=== PATIENT | male | born 1960 | race Two or more races ===

== ENCOUNTER 2025-11-01 18:03 | Emergency (ER) | payer MEDICARE, MEDICAID, SELFPAY ==
[2025-11-01 18:20] VITALS: BP 146/76; PULSE 82; RESP 16; TEMP 36.7; O2SAT 97; BMI 33.6
--- NOTE | 2025-11-01 18:26 | XR_ITS ---
Examination: CT abdomen and pelvis without contrast. Coronal 3-D reconstructions. Sagittal 2-D reconstructions. Date and time of exam: November 01 in 2024, 1854 hours INDICATIONS: Abdominal pain and diarrhea today CTDI: vol (mGy): 8.86 DLP: (mGycm): 541 Technique: Axial images of the abdomen have been obtained, 3 mm slice thickness Intravenous contrast material has not been administered. Low dose protocols were performed. One or more of the following dose reduction techniques were used; automated exposure control, adjustment of the mA and/or KV according to patient size, use of iterative reconstruction technique. Findings: No focal liver or splenic lesion No gallstones No pancreatic or adrenal mass No renal or ureteral calculi Aortic calcification no aneurysmal dilatation Normal appendix Mild small bowel ileus No obstruction No diverticulitis Mild prostatomegaly Mild urinary bladder wall thickening Moderate osteopenia IMPRESSION: No renal or ureteral calculi, no hydronephrosis Normal appendix Mild small bowel ileus Mild urinary bladder wall thickening, cystitis would be included in the differential
--- NOTE | 2025-11-01 18:27 | PD.EDRME ---
Rapid Medical Screening Exam RME Arrival date/time: 11/01/25 18:03 This is a case of 65-year-old male who history of hypertension hyperlipidemia came in in the emergency room due to abdominal pain vomiting diarrhea dizziness for 5 days worsening of the symptoms this patient decided to start consulted in the emergency room Chief Complaint: Abdominal Pain Time Seen by Provider: 11/01/25 18:22 Vital signs: Vital Signs Temperature 98.0 F 11/01/25 18:20 Pulse Rate 82 11/01/25 18:20 Respiratory Rate 16 11/01/25 18:20 Blood Pressure 146/76 H 11/01/25 18:20 Pulse Oximetry (%) 97 11/01/25 18:20 Oxygen Delivery Method Room Air 11/01/25 18:20 Exam: Generalized tenderness all quadrants of the abdomen normal active bowel sounds no guarding no rebound rigidity Clinical Impression: abdominal pain
[2025-11-01 18:55] LABS: Basophils # (Auto) 0.0 Thou/mm3 (0.0-0.2); Basophils % (Auto) 0 % (0-2.5); Eosinophils # (Auto) 0.0 Thou/mm3 (0.0-0.5); Eosinophils % (Auto) 0 % (0-10); Hematocrit 45.5 % (41.0-53.0); Hemoglobin 15.5 g/dL (13.5-16.0); Immature Granulocytes Auto 0.06 Thou/mm3 (0.00-0.00); Lymphocytes # (Auto) 0.5 Thou/mm3 (1.0-4.8); Lymphocytes % (Auto) 3 % (10-50); Mean Corpuscular HGB Conc 34.1 g/dl (31.0-37.0); Mean Corpuscular Hemoglobin 27.7 pg (25.0-35.0); Mean Corpuscular Volume 81 fL (80-100); Monocytes # (Auto) 0.4 Thou/mm3 (0.0-0.8); Monocytes % (Auto) 3 % (0-12); Neutrophils # (Auto) 14.0 Thou/mm3 (1.8-7.7); Neutrophils % (Auto) 93 % (37-80); Nucleated Red Blood Cell # 0.00 Thou/mm3 (0.00-0.00); Nucleated Red Blood Cell % 0 /100 WBC (0); Platelet Count 215 Thou/mm3 (140-440); RDW Standard Deviation 35.8 fL (35.1-43.9); Red Blood Count 5.60 Miln/mm3 (4.50-5.90); White Blood Count 15.0 Thou/mm3 (3.8-10.6)
[2025-11-01 19:20] LABS: Alanine Aminotransferase 51 U/L (10-49); Albumin, Serum 4.9 gm/dL (3.4-4.8); Albumin/Globulin Ratio 1.7 (1.2-2.2); Alkaline Phosphatase 87 U/L (46-116); Anion Gap 10 (7-16); Aspartate Amino Transferase 31 U/L (0-34); BUN/Creatinine Ratio 18 Ratio (12-20); Bilirubin,Total 1.1 mg/dL (0.3-1.2); Blood Urea Nitrogen 16 mg/dL (9-23); Calcium 9.5 mg/dL (8.3-10.6); Calcium (Corrected) 9.5 mg/dL (8.5-10.1); Carbon Dioxide 27.4 mMol/L (20.0-31.0); Chloride 100 mMol/L (98-107); Creatinine (Component) 0.9 mg/dL (0.6-1.3); Estimated Creatinine Clearance 91.1 mL/min (>60); Globulin 2.9 gm/dL (2.3-3.5); Glucose 139 mg/dL (74-106); Lipase 29 U/L (12-53); Osmolality,Calculated 277 (275-295); Potassium 3.9 mMol/L (3.4-5.1); Sodium 137 mMol/L (136-145); Total Protein 7.8 gm/dL (5.7-8.2); eGFR > 60 See Note
[2025-11-01 20:08] LABS: Collection Type, Urine Clean Catch
[2025-11-01 20:15] LABS: Amorphous Crystals,Urine Present (Absent); Bacteria,Urine Rare; Bilirubin,Urine Negative (Negative); Blood,Urine Negative (Negative); Clarity,Urine Clear (Clear/Hazy); Color,Urine Yellow (Lt Yel-Yel); Glucose, Urine Negative (Negative); Ketones,Urine Negative (Negative); Leukocyte Esterase,Urine Negative (Negative); Nitrite,Urine Negative (Negative); PH,Urine 7.0 (5.0-7.0); Protein,Urine 1+ (Neg - Trace); RBC,Urine 14 /hpf (0-3); Specific Gravity,Urine 1.030 (1.001-1.035); Squamous Epithelial Cell,Urine < 1 /hpf (0-5); Urobilinogen,Urine 2.0 mg/dL (0.0-1.0); WBC,Urine 1 /hpf (0-5)
--- NOTE | 2025-11-01 21:56 | EDNOTE_ITS ---
ED General RME/HPI General Chief complaint: Abdominal Pain Stated complaint: ABD PAIN, NAUSEA/DIARRHEA, DIZZY ALL DAY Time Seen by Provider: 11/01/25 18:22 Arrival date/time: 11/01/25 18:03 RME / HPI RME / HPI narrative: 11/01/25 18:03 This is a case of 65-year-old male who history of hypertension hyperlipidemia came in in the emergency room due to abdominal pain vomiting diarrhea dizziness for 5 days worsening of the symptoms this patient decided to start consulted in the emergency room Exam: Generalized tenderness all quadrants of the abdomen normal active bowel sounds no guarding no rebound rigidity Impression: abdominal pain Related Data Home Medications ?Medication ?Instructions ?Recorded ?Confirmed amlodipine 5 mg tablet (Norvasc) 5 mg PO QDAY 03/25/24 03/25/24 atorvastatin 40 mg tablet 40 mg PO QDAY 03/25/2403/25 lisinopril 30 mg tablet 30 mg PO QDAY 03/25/2403/25 Previous Rx's ?Medication ?Instructions ?Recorded ibuprofen 800 mg tablet 800 mg PO TID PRN pain #30 t abs 05/15/24 loperamide 2 mg capsule 2 mg PO Q6H PRN loose stool 5 days 11/01/25 #20 caps nitrofurantoin macrocrystal 100 mg 100 mg PO BID 7 day s #14 caps 11/01/25 capsule Allergies Allergy/AdvReac Type Severity Reaction Status Date / Time No Known Allergies Allergy Verified 11/01/25 18:07 ED Exam Narrative Physical exam: Physical Exam: GENERAL: Awake, answering questions appropriately, appears stated age, obese HEENT: NC/AT. Moist mucosa. PERRLA/EOMI. CARDIO: Heart RRR, no obvious murmurs, no JVD. PULM: No coughing or visible SOB. Lungs CTA B/L. GI: Abdomen soft, mildly tender in the epigastric region otherwise unremarkable, no organomegaly, no guarding or rebound tenderness. SKIN/MSK/EXT: No wounds/discoloration/rashes/edema/amputations. +Pedal pulses present B/L. NEURO: Oriented x3, Moves extremities x4, no focal neurologic deficits noted, [id number] test unremarkable, gait steady with good lift off and foot placement, no pronator drift noted, rapid alternating movements intact Course Quality Measures none Orders Category Date Time Status CT abdomen pelvis wo con Stat Exams 11/01/25 18:26 Completed CBC Stat Lab 11/01/25 18:45 Completed Comprehensive Metabolic Panel Stat Lab 11/01/25 18:45 Completed Lipase Stat Lab 11/01/25 18:45 Completed Urinalysis Stat Lab 11/01/25 20:01 Completed Urine Culture Stat Lab 11/01/25 20:01 Received Loperamide [Imodium] Med 11/01/25 21:57 Discontinued 4 mg PO X1 ONE Vital Signs Vital signs: Vital Signs Temperature 98.0 F 11/01/25 18:20 Pulse Rate 82 11/01/25 18:20 Respiratory Rate 16 11/01/25 18:20 Blood Pressure 146/76 H 11/01/25 18:20 Pulse Oximetry (%) 97 11/01/25 18:20 Oxygen Delivery Method Room Air 11/01/25 18:20 Discharge Plan Plan Patient Disposition: HOME (Self Care) Discharge Disposition comment: Please follow-up with your PCP within 5-7 days after ED visit Take Loperamide 2mg tablet every 6 hours as needed for diarrhea Take nitrofurantoin 100mg capsules twice a day for seven days for cystitis Ask your PCP to refer you to a supervisor lace tearing to establish care; you have risk factors for heart disease including hypertension, obesity and hyperlipidemia Patient condition on transfer: Stable Prescriptions/Referrals Prescriptions/Med Rec: New nitrofurantoin macrocrystal 100 mg capsule 100 mg PO BID 7 Days Qty: 14 0RF Rx Instructions: must administer with a meal/food loperamide 2 mg capsule 2 mg PO Q6H PRN (Reason: loose stool) 5 Days Qty: 20 0RF No Action atorvastatin 40 mg Tablet 40 mg PO QDAY amlodipine [Norvasc] 5 mg Tablet 5 mg PO QDAY lisinopril 30 mg Tablet 30 mg PO QDAY ibuprofen 800 mg tablet 800 mg PO TID PRN (Reason: pain) Qty: 30 0RF Referrals: Anthony Zarate PA-C [Primary Care Provider] - In 1 week Problem List Clinical Impression: Cystitis Patient/Caregiver Discharge Instructions Print Language: Citizen Of [place] Stand Alone Forms: [facility] Award Info., Patient Portal Info Letter Attestation Attestation I, Dr. Rosa, have reviewed the history, exam, and assessment of the patient. I have evaluated the patient independently and agree with the plan of care documented by the resident Dr. Shah. All diagnostic studies were reviewed and discussed. I confirm the diagnosis as documented by the resident. I was present during the Medical Decision Making for this patient. The patient?s plan of care was created between myself and the resident and consistent with our discussion of the patient?s case. MDM Narrative MDM hospital course (for use when minimal MDM required): HPI: 65-year-old male with past medical history of hypertension, hyperlipidemia, obesity presenting to the ED on 11/01 with 1 day of diarrhea associated with some dizziness and abdominal discomfort. Patient states that the symptoms started yesterday and he does remember if he ate anything in particular that could have caused it. Patient denies having any fever/chills, chest pain, shortness of breath but does state that he has difficulty eating at this time because of nausea and abdominal pain. Patient states that his bowel movements have been purely liquid without any bleeding or black discoloration. He denies having any syncopal episodes, weakness or confusion. On examination, patient is awake answering questions appropriately, heart and lung examination unremarkable, abdominal exam does show some mild tenderness in the epigastric region; however, rest of abdominal exam is largely unremarkable. As the patient is feeling dizzy, thorough neurologic assessment including cerebellar exam was conducted and was largely negative as outlined above. Laboratory findings included mild leukocytosis of 15.0 with left shift 93%, CMP was largely unremarkable other than mild elevated liver enzymes likely secondary to MASLD, AST was 31, ALT 51. Urinalysis not show any signs of active disease there was some RBCs present but leukocyte esterase and nitrates are negative and there is no bacteria noted. Urine culture sent otherwise due to imaging findings. CT abdomen pelvis did not show mild small bowel ileus with mild urinary bladder wall thickening including cystitis. #Orthostatic hypotension #Dehydration #Acute cystitis #Acute diarrheal illness As noted above, per HPI and labs and imaging findings Plan: Will discharge patient from the ED with 7-day course of Macrobid 100 mg capsules twice daily Loperamide 4 mg given in the ED, will discharge with 2 mg every 6 hours as needed Recommended the patient follow-up with PCP within the next 5 days and to ask for referral to cardiology as patient has some risk factors for cardiac disease Explained to patient that if dizziness does not go away and he starts developing increased dizziness with weakness confusion or any other abnormal symptoms to come back to the ED immediately. Patient seen and assessed with attending Dr. Rodney Shah, DO PGY-2 Internal Medicine - [facility] Medication Administration(s) Medication Administration History Discontinued Medications Loperamide HCl (Loperamide 2 Mg Capsule) 4 mg PO X1 ONE Stop: 11/01/25 21:58 Last Admin: 11/01/25 22:18 Dose: 4 mg Documented By: CVL
[2025-11-01] MEDS: LOPERAMIDE 2 MG CAPSULE 4 MG PO (22:18)
[2025-11-01 22:21] VITALS: RESP 16
== END 2025-11-01 22:21 | disposition home or self-care (01) ==
PROVIDERS: Nurse Practitioner Family; Emergency Provider Emergency Medicine; PCP Physician Assistant Medical
DX: N30.90 Cystitis, unspecified without hematuria (principal); K56.7 Ileus, unspecified
CPT/HCPCS: 36415; 74176; 80053; 81001; 83690; 85025; 87086; 99283; A9270